=== PATIENT | male | born 1970 | race Caucasian/White ===

== ENCOUNTER 2018-04-05 11:58 | Emergency (ER) | payer MEDICARE, MEDICAID ==
--- NOTE | 2018-04-05 12:38 | ER Document Report ---
ED Neck/Back Problem - General Chief Complaint: Neck and Upper Back Pain Stated Complaint: SHOULDER/NECK PAIN Time Seen by Provider: 04/05/18 12:23 Notes: This is a 47-year-old male to the emergency department chief complaint of neck pain. Patient states that he has a history of degenerative disc disease. Has had disc bulge and other disc pathology in the cervical spine as diagnosed by MRI. States that recently he had a cardiac catheterization done due to a failed stress test. Had complications with the cardiac catheterization with resultant blood clot in the right upper extremity. Currently on anticoagulation therapy but does not know the name of it. Thinks he takes "30 mg a day". Denies any trauma to the neck. States he just mostly feels stiffness in the neck when he rotates the left and right. Mostly located in the muscles. Denies any weakness or numbness of the upper extremities. Denies any loss of bowel or bladder function. No change in swallowing. No difficulty with ambulation. When asked what his concern is today and how we can help him be states that he would like an x-ray of his neck. TRAVEL OUTSIDE OF THE [place] IN LAST 30 DAYS: No - HPI Onset: Last week Onset: Gradual - Related Data Allergies/Adverse Reactions: Penicillins Allergy (Verified 04/05/18 12:23) Past Medical History - General Information source: Patient - Social History Smoking Status: Former Smoker Cigarette use (# per day): No Chew tobacco use (# tins/day): Yes Smoking Education Provided: No Frequency of alcohol use: None Drug Abuse: None Lives with: Spouse/Significant other Family History: Reviewed & Not Pertinent Patient has suicidal ideation: No Patient has homicidal ideation: No - Past Medical History Cardiac Medical History: Reports: Hx Hypertension Renal/ Medical History: Denies: Hx Peritoneal Dialysis Review of Systems - Review of Systems Constitutional: No symptoms reported. denies: Fever, Malaise, Weakness EENT: No symptoms reported, See HPI. denies: Eye pain, Blurred vision, Double vision, Difficulty swallowing Cardiovascular: No symptoms reported. denies: Chest pain, Palpitations, Heart racing Respiratory: No symptoms reported. denies: Cough, Hurts to breathe, Short of breath Gastrointestinal: No symptoms reported. denies: Abdominal pain, Diarrhea, Nausea, Vomiting Genitourinary: No symptoms reported Male Genitourinary: No symptoms reported Musculoskeletal: See HPI, Muscle pain, Muscle stiffness, Neck pain Skin: No symptoms reported Hematologic/Lymphatic: No symptoms reported Neurological/Psychological: No symptoms reported Physical Exam - Vital signs Vitals: Temp Pulse Resp BP Pulse Ox 97.7 F 65 18 152/88 H 97 04/05/18 12:03 04/05/18 12:03 04/05/18 12:03 04/05/18 12:03 04/05/18 12:03 Interpretation: Normal - General General appearance: Appears well, Alert - HEENT Head: Normocephalic, Atraumatic Eyes: Normal Pupils: PERRL - Respiratory Respiratory status: No respiratory distress Chest status: Nontender Breath sounds: Normal Chest palpation: Normal - Cardiovascular Rhythm: Regular Heart sounds: Normal auscultation Murmur: No - Abdominal Inspection: Normal Distension: No distension Bowel sounds: Normal Tenderness: Nontender Organomegaly: No organomegaly - Back Back: Normal, Nontender. No: Deformity/step-off, Vertebra tenderness, Scoliosis Notes: Mild tenderness to palpation of bilateral paraspinal muscles of the cervical spine mostly at the level of C5 through T1 on the right - Extremities General upper extremity: Normal inspection, Nontender, Normal color, Normal ROM , Normal temperature General lower extremity: Normal inspection, Nontender, Normal color, Normal ROM , Normal temperature, Normal weight bearing. No: Linsey's sign - Neurological Neuro grossly intact: Yes Cognition: Normal Orientation: AAOx4 Ulmer Coma Scale Eye Opening: Spontaneous Ulmer Coma Scale Verbal: Oriented Bruna Coma Scale Motor: Obeys Commands Bruna Coma Scale Total: 15 Speech: Normal Motor strength normal: LUE, RUE, LLE, RLE Sensory: Normal - Psychological Associated symptoms: Normal affect, Normal mood - Skin Skin Temperature: Warm Skin Moisture: Dry Skin Color: Normal Course - Re-evaluation Re-evalutation: 04/05/18 13:39 No acute findings on x-ray of the some degenerative disc disease. We will try some muscle relaxants. Patient encouraged to follow-up with his regular doctor. Find no urgent or emergent reason to do an MRI at this time. 04/05/18 14:41 Cervical Spine X-Ray 04/05/18 12:37 IMPRESSION: Mild degenerative disc changes at C4-5. - Vital Signs Vital signs: Temp Pulse Resp BP Pulse Ox 98.2 F 81 18 150/81 H 99 04/05/18 14:26 04/05/18 14:26 04/05/18 14:26 04/05/18 14:26 04/05/18 14:26 Discharge - Discharge Clinical Impression: Degenerative joint disease of cervical spine Qualifiers: Spinal osteoarthritis complication: without myelopathy or radiculopathy Qualified Code(s): M47.812 - Spondylosis without myelopathy or radiculopathy, cervical region Disposition: HOME, SELF-CARE Instructions: Neck Injury (Cervical Strain) ([facility]) Additional Instructions: If you develop weakness, numbness, tingling or loss of sensation of the upper extremities, dizziness, worsening pain or other symptoms return immediately. Prescriptions: Cyclobenzaprine HCl [Flexeril 5 mg Tablet] 5 mg PO TID #15 tablet
--- NOTE | 2018-04-05 13:08 | RADIOLOGY REPORT (SQ) ---
EXAM DESCRIPTION: CERV SP 3 VIEW OR LESS COMPLETED DATE/TIME: 04/05/2018 12:57 pm REASON FOR STUDY: pain COMPARISON: None. NUMBER OF VIEWS: Three views. TECHNIQUE: AP, lateral and odontoid radiographic images acquired of the cervical spine. Additional swimmer's view was obtained. LIMITATIONS: None. FINDINGS: MINERALIZATION: Osteopenic ALIGNMENT: Anatomic. VERTEBRAE: Vertebral bodies of normal height. DISCS: C4-5 disc space loss of height with mild anterior and posterior osteophyte formation. HARDWARE: None in the spine. SOFT TISSUES: No masses or calcifications. Lung apices clear. OTHER: No other significant finding. IMPRESSION: Mild degenerative disc changes at C4-5. TECHNICAL DOCUMENTATION: JOB ID: [id number] [employer]- All Rights Reserved Reading location - IP/workstation name: [email or web address]
[2018-04-05 14:27] VITALS: BP 150/81
== END 2018-04-05 14:26 | disposition home or self-care (01) ==
LOC: ER 11:58
DX: M47.812 Spondylosis without myelopathy or radiculopathy, cervical region (principal); M54.6 Pain in thoracic spine; Z88.0 Allergy status to penicillin; Z87.891 Personal history of nicotine dependence
CPT/HCPCS: 72040; 99283